=== PATIENT | male | born 1965 ===

== ENCOUNTER 2020-01-20 07:27 | Outpatient (CLI) | payer OTHER | END 2020-01-20 07:29 | disposition home or self-care (01) | LOC: NUCLEAR 07:27 | PROVIDERS: ATTEND Internal Medicine Cardiovascular Disease | DX: I20.8 Other forms of angina pectoris (principal); I25.10 Atherosclerotic heart disease of native coronary artery without angina pectoris | CPT/HCPCS: A9500; 93017; 78452 ==